=== PATIENT | male | born 1990 | race Caucasian/White ===

== ENCOUNTER 2019-07-26 17:30 | Emergency (ER) | payer SELFPAY ==
[2019-07-26 17:31] VITALS: BP 133/77; PULSE 94; RESP 16; TEMP 36.5; O2SAT 99; BMI 20.7
--- NOTE | 2019-07-26 18:55 | CT_ITS ---
STUDY: CT ABDOMEN AND PELVIS WITH CONTRAST REASON FOR EXAM: Male, 29 years old. Left flank pain, dog pulled him down the stairs RADIATION DOSAGE (If Supplied By Facility): CTDIvol = ( 9.61 ) mGy, DLP = ( 478.63 ) mGycm TECHNIQUE: Transaxial images were obtained from the dome of the diaphragm to the symphysis pubis without oral contrast. IV 100mL Isovue-370 was administered. Sagittal and coronal images were reconstructed. Individualized dose optimization techniques were used for this CT. COMPARISON: None. FINDINGS: The visualized lung bases are unremarkable. The visualized portions of the heart are within normal limits. Normal liver. Normal gallbladder and extrahepatic biliary system. Normal spleen. Normal pancreas. Normal bilateral adrenal glands. Normal right kidney. Normal left kidney. Normal visualized stomach. Normal small intestine. Normal colon. The appendix is visualized and appears normal. Normal abdominal aorta. Normal inferior vena cava. Normal retroperitoneum. Normal urinary bladder. Normal abdominal wall. Normal osseous structures. There is transitional anatomy with pseudoarticulation of right L5-S1. CT/Abdomen/Pelvis WITH Contrast IMPRESSION: 1. No solid organ injury, pneumoperitoneum or ascites. Electronically Signed: Paul Banerjee MD ([place]) at 19:44 EST , Service support ,
--- NOTE | 2019-07-26 19:09 | ED.VIS.GEN ---
History of Present Illness Chief Complaint: Back Informant: Patient Onset: Today Narrative: Mechanical fall 10 AM this morning. Took his dog out of the house this got pulled falling off reports hitting his back directly on concrete porch. Pain is been increasing. No radicular symptoms. No urinary symptoms. No nausea or vomiting. No anticoagulation medicines. No past medical history. Prior similar symptoms: No Past Medical History - Allergies and Home Meds Allergies/Adverse Reactions: Allergies No Known Allergies Allergy (Verified 07/26/19 17:31) Primary Care Physician: Care Physician,No Primary [Primary Care Provider] - Smoking Status: Current every day smoker Review of Systems General: Denies: Chills, Fever, Sweats Eyes: Denies: Visual changes - bilaterally, Diplopia ENT: Denies: Rhinorrhea, Sore throat Cardiovascular: Denies: Chest pain, Palpitations Respiratory: Denies: Dyspnea, Cough, Dyspnea on exertion Gastrointestinal: Denies: Abdominal pain, Nausea, Vomiting, Diarrhea, Melena, Hematochezia Genitourinary: Denies: Dysuria, Hematuria, Frequency Musculoskeletal: Reports: Back pain. Denies: Extremity Pain Skin: Denies: Rash, Wounds Neurological: Denies: Headache, Weakness, Numbness Physical Exam Vital Signs/Narrative: Vital Signs Temp Pulse Resp BP Pulse Ox 07/26/19 17:31 97.7 F L 94 16 133/77 H 99 Inital Vital Signs reviewed: Yes General: Well nourished, Well developed, No Acute Distress Head: Normocephalic, Atraumatic Eyes: Perrl, EOMI ENT: Moist mucous membranes, No rhinorrhea Neck: Supple, Nontender Cardiovascular: Regular rate, Regular rhythm, No murmurs Respiratory: No distress, CTA bilaterally, Chest nontender, - - Symmetric breath sounds. Abdomen: Soft, Nontender, Nondistended, Normal bowel sounds Back: - - Tender palpation midline L2-L3 with no step-offs. There is tenderness left mid flank with no ecchymosis. Extremities: Nontender, No edema Skin: Normal color, No rash Neurological: Alert, Oriented x3, Cranial nerves II-XII grossly intact, Normal Strength, Normal Sensation Psychological: Normal affect, Normal Mood Diagnostic/Tx/Re-eval Clinical Impression(s) from Imaging Studies Abdomen/Pelvis CT 07/26/19 18:55 IMPRESSION: 1. No solid organ injury, pneumoperitoneum or ascites. Electronically Signed: Paul Banerjee MD ([place]) at 19:44 EST , Service support , Abnormal Lab Results 07/26/19 07/26/19 07/26/19 19:15 19:15 19:15 WBC 12.0 H RBC 4.35 L Hgb 14.2 Hct 41.0 MCV 94.3 H MCH 32.6 H MCHC 34.6 RDW Std Deviation 43.8 RDW Coeff of Elayne 12.7 Plt Count 208 MPV 11.3 Immature Gran % (Auto) 0.300 Neut % (Auto) 73.2 H Lymph % (Auto) 11.1 L [place] % (Auto) 12.8 H Eos % (Auto) 2.0 Baso % (Auto) 0.6 Absolute Neuts (auto) 8.8 H Absolute Lymphs (auto) 1.33 Nucleated RBC % 0 Differential Comment SCANNED Diff Path Review May foll Platelet Estimate ADEQUATE RBC Morphology NORM C+C PT 14.4 INR 1.1 APTT 29.9 Sodium 140 Potassium 3.9 Chloride 106 Carbon Dioxide 29.0 Anion Gap 5 BUN 10 Creatinine 1.00 Estim Creat Clear Calc 107.81 Est GFR (MDRD) Af Amer 112 Est GFR (MDRD) Non-Af 93 BUN/Creatinine Ratio 10.0 Glucose 103 Calcium 9.0 - Medical Decision Making Patient declined any opiate pain medicines trauma scan the abdomen pelvis shows no acute process. He agrees with Toradol. Labs per protocol are stable. He will continue NSAIDs for symptom control. He will follow-up as an outpatient. All questions were answered. ED Disposition - Plan for ED Patient: Disposition: Home or Assisted Living Diagnosis: Lumbar contusion Instructions: CONTUSION, Back Prescriptions: Ibuprofen [Motrin] 600 mg PO Q6H PRN PRN #20 tablet PRN Reason: Pain Or Fever Referrals: Care Physician,No Primary [Primary Care Provider] - Luz Robledo [NON-STAFF] - 5-7 Days
[2019-07-26 19:34] LABS: Absolute Lymphocyte Count 1.33 X10^3/uL (0.83-4.51); Absolute Neutrophil Count 8.8 X10^3/uL (2.0-7.7); Basophil# 0.07 X10^3/uL; Basophil% 0.6 % (0-1); Eosinophil# 0.24 X10^3/uL; Hemoglobin 14.2 g/dL (13.0-16.5); Lymphocyte # 1.33 X10^3/ul (4.0); Lymphocyte % 11.1 % (19-41); Mean Corp Hgb Conc 34.6 g/dL (32-36); Mean Corpuscular Hgb 32.6 pg (27.0-32.0); Mean Corpuscular Volume 94.3 fL (80-94); Mean Platelet Vol. 11.3 fl (6.2-12.0); Monocyte# 1.53 X10^3/uL; Monocyte% 12.8 % (0-10); NRBC Flagged by Analyzer 0 % (0-5); Neutrophil # 8.76 X10^3/uL (2.7-7.7); Neutrophil % 73.2 % (47-70); POSITIVE DIFFERENTIAL YES; Platelet Count 208 K/mm3 (150-450); RBC Distribution Width CV 12.7 % (11.6-14.6); RBC Distribution Width SD 43.8 fl (35.1-43.9); Red Blood Count 4.35 M/mm3 (4.6-6.2)
[2019-07-26 19:38] LABS: Differential Indicated SCAN CRITERIA MET; International Normalized Ratio 1.1; Partial Thromboplast Time 29.9 Seconds (24.1-36.2); Prothrombin Time (Protime)PT. 14.4 SECONDS (11.7-14.9)
[2019-07-26 19:39] LABS: Mucous, Urine 0 SEEN /hpf (<or=2+); Red Blood Cells-Urine 0 SEEN /hpf (0-5); Squamous Epithelial Cells - UA 0 SEEN /hpf (0-5); White Blood Cells 0 SEEN /hpf (0-5)
[2019-07-26 19:48] LABS: Anion Gap 5 (5-15); BUN 10 mg/dL (7-18); Chloride 106 mmol/L (98-107); EST Glomerular Filtration Rate 93 mL/min (>60); Est Glom Filt Rate - Afr Amer 112 mL/min (>60); Estimated Creatinine Clearance 107.81 ml/min; Glucose 103 mg/dL (74-106); Potassium 3.9 mmol/L (3.5-5.1); Sodium Level 140 mmol/L (136-145)
[2019-07-26] MEDS: Ketorolac 30 MG/ML Syringe IV (20:08)
[2019-07-26 20:15] LABS: Differential Comment SCANNED; Platelet Estimate ADEQUATE (ADEQ); Red Cell Morphology NORM C+C NORMAL (NORM C&C)
[2019-07-26 20:33] LABS: Color, Urine Yellow (Yellow); Glucose, Dipstick Normal (Normal); Ketone-Dipstick Negative (Negative); Leukocyte Esterase-Dipstick Negative /ul (Negative); Nitrite-Dipstick Negative (Negative); Occult Blood-Urine Negative /ul (Negative); Protein-Dipstick Negative (Negative); Specific Gravity, Urine 1.015 (1.002-1.030); Urine Bilirubin Dipstick Negative (Negative); Urine Clarity Sl. Cloudy (Clear); Urine Urobilinogen Normal (Normal)
[2019-07-26 20:36] VITALS: BP 112/84; PULSE 73; RESP 18
[2019-07-26 20:41] LABS: Amorphous Sediment 1+; Bacteria 1+ /hpf (None Seen)
[2019-07-27 12:05] LABS: Pathologist Review Reviewed
== END 2019-07-26 20:37 | disposition home or self-care (01) ==
PROVIDERS: Emergency Provider Emergency Medicine
DX: S30.0XXA Contusion of lower back and pelvis, initial encounter (principal); W17.89XA Other fall from one level to another, initial encounter; Y93.K1 Activity, walking an animal; Y92.009 Unspecified place in unspecified non-institutional (private) residence as the place of occurrence of the external cause; Y99.9 Unspecified external cause status; F17.200 Nicotine dependence, unspecified, uncomplicated
CPT/HCPCS: 74177; 80048; 81001; 85025; 85610; 85730; 96374; 99283; Q9967; A4216

== ENCOUNTER 2019-11-18 13:38 | Emergency (ER) | payer SELFPAY ==
[2019-11-18 13:39] VITALS: BP 127/96; PULSE 61; RESP 14; TEMP 36.7; O2SAT 99; BMI 19.8
--- NOTE | 2019-11-18 13:54 | CT_ITS ---
STUDY: CT ABDOMEN AND PELVIS WITH CONTRAST REASON FOR EXAM: Male, 29 years old. ABD PAIN/RECTAL BLEEDING HX-E [place] RADIATION DOSAGE (If Supplied By Facility): CTDIvol = ( 8.53 ) mGy, DLP = ( 371.50 ) mGycm TECHNIQUE: Transaxial images were obtained from the dome of the diaphragm to the symphysis pubis without oral contrast. IV 100mL Isovue-300 was administered. Sagittal and coronal images were reconstructed. Individualized dose optimization techniques were used for this CT. COMPARISON: Comparison is made with prior study dated July 26, 2019. FINDINGS: The visualized lung bases are unremarkable. The visualized portions of the heart are within normal limits. Normal liver. Normal gallbladder and extrahepatic biliary system. Normal spleen. Normal pancreas. Normal bilateral adrenal glands. Normal right kidney. Normal left kidney. Normal visualized stomach. Normal small intestine. Normal colon. The appendix is visualized and appears normal. Normal abdominal aorta. Normal inferior vena cava. Normal retroperitoneum. Normal urinary bladder. Normal abdominal wall. Loss of the normal lumbar lordosis. CT/Abdomen/Pelvis W IV Cont ONLY IMPRESSION: No acute adenopathy is seen. Electronically Signed: Francisco Javier Fuller, at 15:08 EDT , Service support ,
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
[2019-11-18 14:09] LABS: Absolute Neutrophil Count 5.7 X10^3/uL (2.0-7.7); Basophil% 1.1 % (0-1); Eosinophil# 0.67 X10^3/uL; Eosinophils% 7.2 % (0-5); Hematocrit 43.1 % (40-54); Hemoglobin 14.9 g/dL (13.0-16.5); Lymphocyte % 20.4 % (19-41); Mean Corp Hgb Conc 34.6 g/dL (32-36); Mean Corpuscular Hgb 32.5 pg (27.0-32.0); Mean Corpuscular Volume 93.9 fL (80-94); Mean Platelet Vol. 10.2 fl (6.2-12.0); Monocyte# 0.95 X10^3/uL; Monocyte% 10.2 % (0-10); NRBC Flagged by Analyzer 0 % (0-5); Neutrophil # 5.68 X10^3/uL (2.7-7.7); Neutrophil % 60.9 % (47-70); Platelet Count 245 K/mm3 (150-450); RBC Distribution Width CV 12.1 % (11.6-14.6); RBC Distribution Width SD 41.2 fl (35.1-43.9); Red Blood Count 4.59 M/mm3 (4.6-6.2); White Blood Count 9.3 K/mm3 (4.4-11.0)
[2019-11-18] MEDS: 0.9% Normal Saline 1,000 ML 1000 ML IV (14:12)
[2019-11-18] MEDS: Mag Hydrox/Al Hydrox/Simeth 30 ML UDC PO (14:12)
[2019-11-18] MEDS: Ondansetron 4 MG/2 ML Vial IV (14:12)
[2019-11-18 14:25] LABS: ALB/GLOB Ratio 1.1 RATIO (0.9-2.4); AST(SGOT) 45 U/L (15-37); Alanine Aminotransfer ALT/SGPT 39 U/L (16-61); Alkaline Phosphatase 75 U/L (45-117); Anion Gap 7 (5-15); BUN 10 mg/dL (7-18); BUN/Creat Ratio 9.3 RATIO (10-20); Calcium,Total 8.8 mg/dL (8.5-10.1); Chloride 104 mmol/L (98-107); Creatinine, Serum 1.07 mg/dL (0.70-1.30); EST Glomerular Filtration Rate 85 mL/min (>60); Est Glom Filt Rate - Afr Amer 103 mL/min (>60); Estimated Creatinine Clearance 96.26 ml/min; Globulin 3.6 g/dL (2.2-4.2); Glucose 91 mg/dL (74-106); Lipase 152 U/L (73-393); Potassium 3.6 mmol/L (3.5-5.1); Protein, Total 7.6 g/dL (6.4-8.2); Sodium Level 140 mmol/L (136-145)
[2019-11-18 15:26] VITALS: PULSE 72; RESP 16; O2SAT 100
[2019-11-18 15:29] LABS: Bacteria 0 SEEN /hpf (None Seen); Mucous, Urine 0 SEEN /hpf (<or=2+); Red Blood Cells-Urine 0 SEEN /hpf (0-5)
[2019-11-18 15:34] LABS: Color, Urine Yellow (Yellow); Glucose, Dipstick Normal (Normal); Ketone-Dipstick Negative (Negative); Leukocyte Esterase-Dipstick Negative /ul (Negative); Nitrite-Dipstick Negative (Negative); Occult Blood-Urine Negative /ul (Negative); Protein-Dipstick 15 mg/dl (Negative); Specific Gravity, Urine 1.015 (1.002-1.030); Urine Bilirubin Dipstick Negative (Negative); Urine Clarity Clear (Clear); Urine Urobilinogen Normal (Normal)
[2019-11-18 15:52] LABS: Squamous Epithelial Cells - UA 0-5 SEEN /hpf (0-5)
[2019-11-18 15:53] LABS: White Blood Cells 0-5 SEEN /hpf (0-5)
== END 2019-11-18 15:26 | disposition home or self-care (01) ==
PROVIDERS: Emergency Provider Physician Assistant Medical
DX: R10.32 Left lower quadrant pain (principal); F10.10 Alcohol abuse, uncomplicated; K92.1 Melena; K21.9 Gastro-esophageal reflux disease without esophagitis; F17.210 Nicotine dependence, cigarettes, uncomplicated
CPT/HCPCS: 74177; 80053; 81001; 83690; 85025; 96361; 96374; 99284; J7030; Q9967; A4216; J2405

== ENCOUNTER 2020-04-15 12:03 | Emergency (ER) | payer SELFPAY ==
[2020-04-15 12:05] VITALS: BP 128/84; PULSE 89; RESP 18; TEMP 36.4; O2SAT 99; BMI 21.5
--- NOTE | 2020-04-15 12:12 | ED.RN ---
c collar placed in triage for concern d/t mechanism of injury
--- NOTE | 2020-04-15 12:17 | CT_ITS ---
STUDY: CT CERVICAL SPINE WITHOUT CONTRAST REASON FOR EXAM: Male, 29 years old. pt was on trampoline last night and did a flip, landing on face and hearing cracks in neck. immediately had numbness/tingling in hands. unable to move neck up or down and side to side RADIATION DOSAGE (If Supplied By Facility): CTDIvol = ( 13.63 ) mGy, DLP = ( 281.72 ) mGycm TECHNIQUE: High resolution transaxial imaging was performed without contrast material. Sagittal and coronal images were reconstructed. Individualized dose optimization techniques were used for this CT. COMPARISON: None FINDINGS: Normal craniovertebral junction. Normal anterior atlantoaxial articulation. Normal odontoid process. Normal cervical lordosis. Normal vertebral bodies and posterior osseous elements. C2-3: Normal endplates. Normal disc height and morphology. Normal central canal and intervertebral neuroforamina. C3-4: Normal endplates. Normal disc height and morphology. Normal central canal and intervertebral neuroforamina. C4-5: Normal endplates. Normal disc height and morphology. Normal central canal and intervertebral neuroforamina. C5-6: Minimal spondylosis. Normal disc height and morphology. Normal central canal and intervertebral neuroforamina. C6-7: Normal endplates. Normal disc height and morphology. Normal central canal and intervertebral neuroforamina. C7-T1: Normal endplates. Normal disc height and morphology. Normal central canal and intervertebral neuroforamina. No prevertebral soft tissue swelling. CT/Spine Cervical without Contras IMPRESSION: 1. No cervical spine fracture or traumatic subluxation. Electronically Signed: Paul Banerjee MD ([place]) at 12:44 EDT , Service support ,
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
[2020-04-15] MEDS: Ondansetron 4 MG/2 ML Vial IV (12:27)
[2020-04-15] MEDS: Morphine 4 MG/ML Syringe IV (12:27)
[2020-04-15 14:31] VITALS: PULSE 84; RESP 17; O2SAT 97
== END 2020-04-15 14:32 | disposition home or self-care (01) ==
PROVIDERS: Emergency Provider Emergency Medicine
DX: S16.1XXA Strain of muscle, fascia and tendon at neck level, initial encounter (principal); S00.91XA Abrasion of unspecified part of head, initial encounter; M79.642 Pain in left hand; M79.641 Pain in right hand; W19.XXXA Unspecified fall, initial encounter; Y93.44 Activity, trampolining; Y92.9 Unspecified place or not applicable; Y99.9 Unspecified external cause status; F17.200 Nicotine dependence, unspecified, uncomplicated
CPT/HCPCS: 72125; 99283; A4216; J2405

== ENCOUNTER 2021-07-26 14:06 | Emergency (ER) | payer SELFPAY ==
[2021-07-26 14:07] VITALS: BP 136/85; PULSE 89; RESP 16; TEMP 36.6; O2SAT 97; BMI 23.1
--- NOTE | 2021-07-26 15:20 | CT_ITS ---
INDICATION: abdominal pain EXAMINATION: CT Abdomen And Pelvis W/ Contrast Injection TECHNIQUE: Helically acquired images were obtained of the abdomen and pelvis after IV contrast. A radiation dose optimization technique was used for this scan. IV Contrast dosage and agent: IV 100mL Isovue-370 Oral contrast: None. COMPARISON: 11/18/2019. FINDINGS: Visualized lung bases: Unremarkable Liver: Unremarkable Gallbladder: Unremarkable Spleen: Unremarkable Pancreas: Unremarkable Adrenal Glands: Unremarkable Kidneys: Unremarkable Vasculature: Unremarkable GI Tract: Unremarkable Lymphadenopathy: None Peritoneum: No ascites. Bladder: Unremarkable Reproductive organs: Unremarkable Bones/Soft tissues: No suspicious osseous or soft tissue lesions CT/Abdomen/Pelvis W IV Cont ONLY IMPRESSION: No acute abnormalities in the abdomen or pelvis. Electronically Signed: Tim Verdugo MD at 16:24 EST Tel , Service support ,
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
[2021-07-26] MEDS: Ondansetron 4 MG/2 ML Vial IV (15:33)
[2021-07-26] MEDS: Morphine 4 MG/ML Syringe IV (15:34)
[2021-07-26 15:37] LABS: Absolute Lymphocyte Count 1.34 X10^3/uL (0.83-4.51); Absolute Neutrophil Count 9.5 X10^3/uL (2.0-7.7); Basophil# 0.09 X10^3/uL; Basophil% 0.7 % (0-1); Eosinophil# 0.42 X10^3/uL; Eosinophils% 3.4 % (0-5); Hematocrit 46.9 % (40-54); Hemoglobin 16.4 g/dL (13.0-16.5); Lymphocyte # 1.34 X10^3/ul (0.83-4.51); Lymphocyte % 10.9 % (19-41); Mean Corpuscular Hgb 33.2 pg (27.0-32.0); Mean Corpuscular Volume 94.9 fL (80-94); Mean Platelet Vol. 10.7 fl (6.2-12.0); Monocyte% 7.3 % (0-10); NRBC Flagged by Analyzer 0 % (0-5); Neutrophil % 77.3 % (47-70); Platelet Count 247 K/mm3 (150-450); RBC Distribution Width CV 13.3 % (11.6-14.6); RBC Distribution Width SD 46.8 fl (35.1-43.9); Red Blood Count 4.94 M/mm3 (4.6-6.2); White Blood Count 12.3 K/mm3 (4.4-11.0)
[2021-07-26 15:41] LABS: AST(SGOT) 59 U/L (15-37); Alanine Aminotransfer ALT/SGPT 50 U/L (16-61); Albumin, Serum 3.4 g/dL (3.2-5.0); Alkaline Phosphatase 93 U/L (45-117); Anion Gap 7 (5-15); BUN 7 mg/dL (7-18); BUN/Creat Ratio 7.7 RATIO (10-20); Bilirubin, Direct 0.31 mg/dL (0.00-0.30); Calcium,Total 9.2 mg/dL (8.5-10.1); Chloride 106 mmol/L (98-107); Creatinine, Serum 0.91 mg/dL (0.70-1.30); EST Glomerular Filtration Rate 102 mL/min (>60); Est Glom Filt Rate - Afr Amer 123 mL/min (>60); Estimated Creatinine Clearance 129.63 ml/min; Globulin 3.7 g/dL (2.2-4.2); Glucose 108 mg/dL (74-106); Lipase 107 U/L (73-393); Potassium 3.7 mmol/L (3.5-5.1); Protein, Total 7.1 g/dL (6.4-8.2); Sodium Level 140 mmol/L (136-145)
[2021-07-26 16:18] LABS: International Normalized Ratio 1.1; Prothrombin Time (Protime)PT. 13.3 SECONDS (11.7-14.9)
[2021-07-26 16:36] LABS: Bacteria 0 SEEN /hpf (None Seen); Mucous, Urine 0 SEEN /hpf (<or=2+); Red Blood Cells-Urine 0 SEEN /hpf (0-5); Squamous Epithelial Cells - UA 0 SEEN /hpf (0-5); White Blood Cells 0 SEEN /hpf (0-5)
[2021-07-26 17:04] LABS: Color, Urine Yellow (Yellow); Glucose, Dipstick Normal (Normal); Ketone-Dipstick Negative (Negative); Leukocyte Esterase-Dipstick 25 /ul (Negative); Nitrite-Dipstick Negative (Negative); Occult Blood-Urine Negative /ul (Negative); Protein-Dipstick 15 mg/dl (Negative); Urine Bilirubin Dipstick Negative (Negative); Urine Clarity Clear (Clear); Urine Urobilinogen 1 mg/dl (Normal)
[2021-07-26] MEDS: Mag Hydrox/Al Hydrox/Simeth 30 ML UDC PO (17:35)
[2021-07-26 17:48] VITALS: PULSE 84; RESP 17; O2SAT 98
== END 2021-07-26 17:50 | disposition home or self-care (01) ==
PROVIDERS: Emergency Provider Student in an Organized Health Care Education/Training Program
DX: K22.6 Gastro-esophageal laceration-hemorrhage syndrome (principal); K92.1 Melena; R10.9 Unspecified abdominal pain; F17.210 Nicotine dependence, cigarettes, uncomplicated; Z79.1 Long term (current) use of non-steroidal anti-inflammatories (NSAID); Z79.899 Other long term (current) drug therapy; Z87.11 Personal history of peptic ulcer disease
CPT/HCPCS: 74177; 80048; 80076; 81001; 82077; 83690; 85025; 85610; 86850; 86900; 86901; 96374; 96375; 99284; Q9967; A4216; J2405

== ENCOUNTER 2024-01-06 14:16 | Emergency (ER) | payer SELFPAY ==
[2024-01-06 14:17] VITALS: BP 147/90; PULSE 106; RESP 16; TEMP 36.6; O2SAT 99; BMI 22.1
[2024-01-06 14:41] LABS: Red Blood Cells-Urine 0 SEEN /hpf (0-5); Squamous Epithelial Cells - UA 0 SEEN /hpf (0-5)
[2024-01-06 14:50] LABS: Color, Urine Yellow (Yellow); Glucose, Dipstick Normal (Normal); Ketone-Dipstick 5 mg/dl (Negative); Leukocyte Esterase-Dipstick 25 /ul (Negative); Nitrite-Dipstick Negative (Negative); Occult Blood-Urine Negative /ul (Negative); Protein-Dipstick 30 mg/dl (Negative); Specific Gravity, Urine 1.025 (1.002-1.030); Urine Bilirubin Dipstick 1 mg/dL (Negative); Urine Clarity Clear (Clear); Urine Urobilinogen 4 mg/dl (Normal)
[2024-01-06 14:55] LABS: Mucous, Urine 2+ /hpf (<or=2+); White Blood Cells 0-5 SEEN /hpf (0-5)
[2024-01-06 14:56] LABS: Bacteria 1+ /hpf (None Seen)
[2024-01-06] MEDS: predniSONE 20 MG Tablet 60 MG PO (15:35)
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
== END 2024-01-06 15:46 | disposition home or self-care (01) ==
PROVIDERS: Emergency Provider Student in an Organized Health Care Education/Training Program; Visit Provider Student in an Organized Health Care Education/Training Program
DX: L23.7 Allergic contact dermatitis due to plants, except food (principal); B35.3 Tinea pedis; F17.210 Nicotine dependence, cigarettes, uncomplicated; Z79.899 Other long term (current) drug therapy
CPT/HCPCS: 81001; 99282

== ENCOUNTER 2024-05-12 23:21 | Emergency (ER) | payer SELFPAY ==
[2024-05-12 23:22] VITALS: BP 127/90; PULSE 65; RESP 18; TEMP 36.7; O2SAT 99; BMI 22.6
--- NOTE | 2024-05-12 23:40 | RAD_ITS ---
EXAM: XR CHEST, 2 VIEWS CLINICAL INDICATION: CHEST PAIN TECHNIQUE: Frontal and lateral views of the chest. COMPARISON: No relevant prior studies available. FINDINGS: LUNGS AND PLEURAL SPACES: Unremarkable. No consolidation or edema. No pneumothorax. No effusion. HEART: Unremarkable. Cardiac silhouette not enlarged. MEDIASTINUM: Central airways and mediastinal contour are unremarkable. BONES/JOINTS: Unremarkable. No acute fracture. SOFT TISSUES: Unremarkable. RAD/Chest PA and Lateral IMPRESSION: No radiographic evidence of acute cardiopulmonary disease. Electronically Signed: Sampson Balbuena MD at 0:18 EDT ,
--- NOTE | 2024-05-12 23:40 | EKG12_ITS ---
Test Reason : CP Blood Pressure : / mmHG Vent. Rate : 076 BPM Atrial Rate : 076 BPM P-R Int : 160 ms QRS Dur : 100 ms QT Int : 396 ms P-R-T Axes : 068 067 059 degrees QTc Int : 445 ms Normal sinus rhythm Normal ECG Confirmed by VICK GALINDO, HARRISON ([id number]), editor book ROSA MARIA SPARROW ([id number]) on 05/14/2024 1:56:25 PM Referred By: Confirmed By:HARRISON HICKMAN MD
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
[2024-05-13 00:15] LABS: Anion Gap 5 (5-15); BUN 10 mg/dL (7-18); BUN/Creat Ratio 9.1 RATIO (10-20); Calcium,Total 9.1 mg/dL (8.5-10.1); Chloride 108 mmol/L (98-107); EST Glomerular Filtration Rate 81 mL/min (>60); Est Glom Filt Rate - Afr Amer 97 mL/min (>60); Estimated Creatinine Clearance 102.94 ml/min; Glucose 107 mg/dL (74-106); Potassium 3.5 mmol/L (3.5-5.1); Sodium Level 140 mmol/L (136-145); Troponin-I HS 3 pg/mL (3.0-78.0)
[2024-05-13 00:17] LABS: Absolute Lymphocyte Count 3.95 X10^3/uL (0.83-4.51); Absolute Neutrophil Count 4.3 X10^3/uL (2.0-7.7); Basophil# 0.17 X10^3/uL; Basophil% 1.7 % (0-1); Eosinophil# 0.86 X10^3/uL; Eosinophils% 8.3 % (0-5); Lymphocyte # 3.95 X10^3/ul (0.83-4.51); Lymphocyte % 38.3 % (19-41); Mean Corp Hgb Conc 34.1 g/dL (32-36); Mean Corpuscular Hgb 31.5 pg (27.0-32.0); Mean Corpuscular Volume 92.3 fL (80-94); Mean Platelet Vol. 11.3 fl (6.2-12.0); Monocyte# 0.98 X10^3/uL; Monocyte% 9.5 % (0-10); NRBC Flagged by Analyzer 0 % (0-5); Neutrophil # 4.31 X10^3/uL (2.7-7.7); Neutrophil % 41.9 % (47-70); Platelet Count 289 K/mm3 (150-450); RBC Distribution Width CV 12.9 % (11.6-14.6); Red Blood Count 4.44 M/mm3 (4.6-6.2); White Blood Count 10.3 K/mm3 (4.4-11.0)
[2024-05-13] MEDS: dexAMETHasone 10 MG/ML Vial IV (00:18)
[2024-05-13 00:45] LABS: D-Dimer Quantitative (DVT/PE) < 0.27 FEU/ug/m (0.27-0.49)
[2024-05-13 01:07] VITALS: BP 113/88; PULSE 66; RESP 15; TEMP 36.7; O2SAT 99
== END 2024-05-13 01:09 | disposition home or self-care (01) ==
PROVIDERS: Emergency Provider Emergency Medicine; Visit Provider Emergency Medicine
DX: J06.9 Acute upper respiratory infection, unspecified (principal); F17.210 Nicotine dependence, cigarettes, uncomplicated
CPT/HCPCS: 71046; 80048; 84484; 85025; 85379; 87631; 93005; 96374; 99283; A4216